=== PATIENT | male | born 1970 | race Two or more races ===

== ENCOUNTER 2018-07-23 07:34 | Inpatient (IN) | payer MEDICAID ==
[2018-07-23] VITALS (7 sets, daily range): BP systolic 93–126; BP diastolic 33–88
[~2018-07-23] VITALS: Ht 167.6 cm; Wt 75.8 kg
[2018-07-23] MEDS ORDERED: ONDANSETRON HCL 4MG/2ML VIAL IV STA (07:44)
[2018-07-23] MEDS ORDERED: MORPHINE SULFATE 4 MG/ML CPJ (NOT FOR IM USE) IV STA (07:44)
[2018-07-23] MEDS ORDERED: SODIUM CHLORIDE 0.9% 1,000 ML IV ONE (07:44)
[2018-07-23] MEDS ORDERED: NITROGLYCERIN 0.4MG TABLET SL SL PRN (07:45)
[2018-07-23] MEDS ORDERED: ASPIRIN 81MG TABLET PO ONE (07:45)
[2018-07-23 08:11] LABS: BASOPHILS % 0.7 % (0.0-2.0); EOSINOPHILS % 2.2 % (0.0-5.0); HEMATOCRIT. 48.1 % (42.0-52.0); HEMOGLOBIN. 16.8 g/dL (14.0-18.0); LYMPHOCYTES % 34.6 % (20.0-50.0); MEAN CORPUSCULAR HEMOGLOBIN 31.1 pg (28.0-32.0); MEAN CORPUSCULAR VOLUME 89.2 fL (80.0-94.0); MEAN PLATELET VOLUME 9.4 fl (7.4-10.4); MONOCYTES % 6.9 % (2.0-8.0); NEUTROPHILS % 55.6 % (40.0-76.0); PLATELET 230 x1000/uL (130-400); RED BLOOD CELL COUNT 5.39 mill/uL (4.7-6.1)
[2018-07-23 08:17] LABS: CHLORIDE 105 mEq/L (98-107)
[2018-07-23 08:18] LABS: PARTIAL THROMBOPLASTIN TIME 26.1 sec (23.4-31.0); PROTHROMBIN TIME 10.1 sec (9.1-11.1)
[2018-07-23] MEDS ORDERED: LIDOCAINE HCL 1% 10 MG/ML 10ML VIAL ONE (08:44)
[2018-07-23] MEDS ORDERED: IOHEXOL-300 100 ML BOTTLE ONE ×2 (08:44→09:16)
[2018-07-23] MEDS ORDERED: CLOPIDOGREL 75MG TABLET PO ONE (08:45)
[2018-07-23] MEDS ORDERED: MIDAZOLAM HCL 2 MG/2 ML VIAL ONE (08:54)
[2018-07-23] MEDS ORDERED: FENTANYL CITRATE/PF 50MCG/ML 2ML VIAL ONE (08:55)
[2018-07-23] MEDS ORDERED: CLOPIDOGREL 75MG TABLET ONE (08:56)
[2018-07-23] MEDS ORDERED: IODIXANOL 320MG/ML 100 ML BOTTLE IV ONE ×2 (09:21→09:42)
[2018-07-23] MEDS ORDERED: LORAZEPAM 2MG/ML CPJ IV PRN (09:30)
[2018-07-23] MEDS ORDERED: MORPHINE SULFATE 4 MG/ML CPJ (NOT FOR IM USE) IV PRN (09:30)
[2018-07-23] MEDS ORDERED: DIPHENHYDRAMINE 50MG/ML VIAL IV PRN (09:30)
[2018-07-23] MEDS ORDERED: HYDROCODONE/ACETAMINOPHEN 5/325MG TABLET PO PRN (09:30)
[2018-07-23] MEDS ORDERED: CLONIDINE 0.1MG TABLET PO PRN (09:30)
[2018-07-23] MEDS ORDERED: ACETAMINOPHEN 325MG TABLET PO PRN ×2 (09:30→10:00)
[2018-07-23] MEDS ORDERED: GUAIFENESIN 200MG/10ML SUGAR FREE UDC PO PRN (09:30)
[2018-07-23] MEDS ORDERED: NA PHOS,M-B/NA PHOS,DI-BA ENEMA 118ML PR PRN (09:30)
[2018-07-23] MEDS ORDERED: DOCUSATE SODIUM 100MG CAPSULE PO PRN (09:30)
[2018-07-23] MEDS ORDERED: IPRATROPIUM/ALBUTEROL 0.5-3(2.5)MG/3ML NEB INH PRN (09:30)
[2018-07-23] MEDS ORDERED: MAGNESIUM/ALUMINUM HYDROXIDE/SIMETHICONE 30ML UDC PO PRN (09:30)
[2018-07-23] MEDS ORDERED: CEFAZOLIN 1000MG PREMIX 50 ML IV ONE (09:50)
[2018-07-23] MEDS ORDERED: ATROPINE SULFATE 1MG/10ML SYR IV PRN (10:00)
[2018-07-23] MEDS ORDERED: ONDANSETRON 4MG ODT PO PRN (11:00)
[2018-07-23] MEDS: LOSARTAN POTASSIUM 50 MG TABLET PO SCH (11:12)
[2018-07-23] MEDS: ENOXAPARIN 40MG/0.4ML SYR SUBCUT SCH (11:12)
[2018-07-23] MEDS ORDERED: HEPARIN SODIUM 1,000 UNIT/1ML VIAL IV ONE (13:37)
[2018-07-23 17:09] LABS: CHLORIDE 108 mEq/L (98-107)
[2018-07-23 17:18] LABS: CREATINE KINASE 216 IU/L (39-308)
[2018-07-23 17:20] LABS: CREATINE KINASE MB FRACTION 12.9 ng/mL (0.5-3.6)
[2018-07-23] MEDS ORDERED: ATORVASTATIN CALCIUM 20MG TABLET PO SCH (21:00)
[2018-07-23] MEDS: METOPROLOL TARTRATE 25MG TABLET PO SCH (21:54)
[2018-07-24] VITALS: BP 106/73
[2018-07-24 00:41] LABS: CREATINE KINASE MB FRACTION 10.7 ng/mL (0.5-3.6)
[2018-07-24 02:00] VITALS: BP 105/76
[2018-07-24 04:00] VITALS: BP 109/74
[2018-07-24 06:00] VITALS: BP 106/75
[2018-07-24 06:22] LABS: BASOPHILS % 0.5 % (0.0-2.0); EOSINOPHILS % 1.7 % (0.0-5.0); HEMATOCRIT. 44.6 % (42.0-52.0); HEMOGLOBIN. 15.7 g/dL (14.0-18.0); LYMPHOCYTES % 23.2 % (20.0-50.0); MEAN CORPUSCULAR HEMOGLOBIN 31.4 pg (28.0-32.0); MEAN CORPUSCULAR VOLUME 89.3 fL (80.0-94.0); NEUTROPHILS % 66.6 % (40.0-76.0); PLATELET 200 x1000/uL (130-400); RED BLOOD CELL COUNT 4.99 mill/uL (4.7-6.1); RED CELL DISTRIBUTION WIDTH 12.9 % (11.6-14.6)
[2018-07-24 07:21] LABS: CHLORIDE 105 mEq/L (98-107)
[2018-07-24 08:00] LABS: CREATINE KINASE 149 IU/L (39-308); CREATINE KINASE MB FRACTION 7.3 ng/mL (0.5-3.6); LDL CHOLESTEROL 93 mg/dL (5-100)
[2018-07-24 08:01] LABS: T4 FREE 0.99 ng/dL (0.76-1.46)
[2018-07-24 08:02] LABS: HDL CHOLESTEROL 36 mg/dL (40-59)
[2018-07-24] MEDS ORDERED: CLOPIDOGREL 75MG TABLET PO SCH ×2 (09:00)
[2018-07-24] MEDS ORDERED: CLOPIDOGREL 75MG TABLET PO ONE (09:00)
[2018-07-24] MEDS ORDERED: ASPIRIN 81MG TABLET PO SCH (09:00)
[2018-07-24] MEDS ORDERED: ASPIRIN 81MG EC TABLET PO SCH (09:00)
[2018-07-24] MEDS: METOPROLOL TARTRATE 25MG TABLET PO SCH (09:08)
[2018-07-24] MEDS: LOSARTAN POTASSIUM 50 MG TABLET PO SCH (09:08)
[2018-07-24] MEDS: ENOXAPARIN 40MG/0.4ML SYR SUBCUT SCH (09:09)
== END 2018-07-24 11:51 | disposition home or self-care (01) | DRG 174 ==
LOC: ER 07:44 → ORIP 08:30 → 3WST 10:39
PROVIDERS: ADMIT Internal Medicine; ATTEND Internal Medicine
PROC: 4A023N7 Measurement of Cardiac Sampling and Pressure, Left Heart, Percutaneous Approach (ICD-10-PCS; principal; 2018-07-23)
PROC: 027034Z Dilation of Coronary Artery, One Artery with Drug-eluting Intraluminal Device, Percutaneous Approach (ICD-10-PCS; 2018-07-23)
PROC: B2111ZZ Fluoroscopy of Multiple Coronary Arteries using Low Osmolar Contrast (ICD-10-PCS; 2018-07-23)
DX: I21.3 ST elevation (STEMI) myocardial infarction of unspecified site (principal); E78.00 Pure hypercholesterolemia, unspecified; I25.10 Atherosclerotic heart disease of native coronary artery without angina pectoris; E78.5 Hyperlipidemia, unspecified; F17.210 Nicotine dependence, cigarettes, uncomplicated; K21.9 Gastro-esophageal reflux disease without esophagitis; I10 Essential (primary) hypertension; Z79.899 Other long term (current) drug therapy; Z79.82 Long term (current) use of aspirin
CPT/HCPCS: 36415; 71045; 80048; 80053; 80061; 82550; 82553; 83036; 83880; 84439; 84443; 84484; 85025; 85379; 85610; 85730; 92928; 93005; 93306; 93458; 96361; 96374; 96375; 99291; C1725; C1760; C1769; C1874; C1887; C1893; J0690; J1644; J1650; J2250; J2270; J2405; J3010; J3490; J7030; Q9967